=== PATIENT | female | born 1950 | race Caucasian/White ===

== ENCOUNTER 2016-06-10 07:36 | Inpatient (IN) | payer OTHER ==
--- NOTE | 2016-06-10 07:50 | EDPHY ---
H & P Time Seen by Provider: 06/10/16 07:46 HPI/ROS: Chief complaint. Fall HPI. 65-year-old female here by EMS after slip and fall on the ice this morning. She landed hard on her right hip and subsequently was unable to get up or stand or walk by herself. She crawled home and called EMS as she was unable to ambulate. She did not strike her head or lose consciousness. No neck pain chest pain abdominal pain or back pain. No previous injury to the right hip. Increased pain with range of motion. Patient is on Suboxone therapy and EMS gave the patient 2 mg of Versed said in attempt to help her pain. ROS Constitutional. no fever/chills, no weakness Eyes. no problems with vision ENT. no sore throat, no nasal drainage Cardiovascular. no chest pain Respiratory. no shortness of breath, no cough Abdominal. no abdominal pain, no nausea/vomiting, no diarrhea . no problems urinating MS. Right hip pain Skin. no rash Lymph. no swollen glands Neuro. no headache, no dizziness, no difficulty walking or with speech Past Medical/Surgical History: Depression, hypertension, chronic opioid dependence for chronic neck pain and now on Suboxone Social History: , daily smoker, no alcohol Smoking Status: Heavy smoker Physical Exam: General Appearance: Alert pleasant well-developed female moderate distress vital signs are stable Eyes: Pupils equal and round no pallor or injection. ENT, Mouth: Mucous membranes are moist. Respiratory: There are no retractions, lungs are clear to auscultation. Cardiovascular: Regular rate and rhythm. Gastrointestinal: Abdomen is soft and nontender, no masses, bowel sounds normal. Neurological: Awake and alert, sensory and motor exams grossly normal. Skin: Warm and dry, no rashes. Musculoskeletal: Neck is supple nontender. Lumbar spine is not tender to palpation Extremities painful range of motion about the right hip but no obvious deformity or shortening. Diffuse pain to the greater trochanter area and right buttock but no tenderness over the rim of the pelvis or over the pubic ramus Psychiatric: Patient is oriented X 3, there is no agitation. Constitutional: Initial Vital Signs Temperature (C) 36.6 C 06/10/16 07:42 Heart Rate 66 06/10/16 07:42 Respiratory Rate 18 06/10/16 07:42 Blood Pressure 179/94 H 06/10/16 07:42 O2 Sat (%) 95 06/10/16 07:42 O2 Delivery Mode Room Air Allergies/Adverse Reactions: No Known Allergies Allergy (Verified 06/10/16 07:41) Home Medications: Medication Instructions Recorded Aspirin EC [Aspirin EC 81 mg (*)] 81 mg PO HS 01/23/15 Calcium Carb W/Vit D [Calcium Carb 500 mg PO HS 01/23/15 W/Vit D 500/200 (*)] Herbals/Supplements -Info Only 1 ea PO DAILY 01/23/15 Melatonin [Melatonin 3 MG (*)] 3 mg PO HS 01/23/15 Metoprolol Succinate Xr [Toprol Xl 100 mg PO DAILY 01/23/15 100 mg (*)] Sertraline HCl [Zoloft 100mg (*)] 100 mg PO DAILY 01/23/15 Simvastatin [Zocor] 80 mg PO HS 01/23/15 Melatonin [Melatonin 3 MG (*)] 3 mg PO HS #0 tab 01/25/15 Metoprolol Succinate Xr [Toprol Xl 100 mg PO DAILY #0 tab 01/25/15 100 mg (*)] Jackson-3 Ethyl Est-Lovaza [Lovaza 1 4 gm PO DAILY #0 cap 01/25/15 gm (*)] Sertraline HCl [Zoloft 100mg (*)] 100 mg PO DAILY #30 tab 01/25/15 Donepezil HCl [Aricept 5 MG (*)] 5 mg PO HS 06/10/16 Suboxone 8 mg-2 mg Tablet 06/10/16 Medical Decision Making - Diagnostics EKG Interpretation: EKG interpreted by me shows normal sinus rhythm normal interval and axis. QRS is normal there is no significant ST elevation or depression. There is no arrhythmia. The rate is 63 Imaging: X-ray right hip interpreted by me shows an intertrochanteric and proximal femoral fracture just below the greater and lesser trochanter. Images are suboptimal due to patient's discomfort. One-view chest x-ray interpreted by me is normal Procedures: IV normal saline, monitor ED Course/Re-evaluation: Re-evaluation at 8:10 a.m.. The patient, her and I discussed imaging study results, treatment plan including need for admission. They expressed understanding and agreement I have consulted and discussed the case with Dr. Daley, hospitalist, who agrees to the admission I have consulted pharmacy regarding pain management. They recommend normal doses of narcotics with anticipation that she may need more to overcome the antagonist some of the Suboxone I consulted and discussed the case with Dr. Willett who will see the patient in the hospital Dilaudid is given intravenously Differential Diagnosis: I considered fracture, dislocation, contusion - Data Points Laboratory Results: Laboratory Results 06/10/16 07:40 06/10/16 07:40 06/10/16 07:40 WBC 12.41 H 10^3/uL (3.80-9.50) RBC 5.42 H 10^6/uL (4.18-5.33) Hgb 16.3 g/dL (12.6-16.3) Hct 49.2 H % (38.0-47.0) MCV 90.8 fL (81.5-99.8) MCH 30.1 pg (27.9-34.1) MCHC 33.1 g/dL (32.4-36.7) RDW 12.9 % (11.5-15.2) Plt Count 264 10^3/uL (150-400) MPV 10.1 fL (8.7-11.7) Neut % (Auto) 67.1 % (39.3-74.2) Lymph % (Auto) 23.0 % (15.0-45.0) Cataño % (Auto) 6.8 % (4.5-13.0) Eos % (Auto) 1.7 % (0.6-7.6) Baso % (Auto) 0.9 % (0.3-1.7) Nucleat RBC Rel Count 0.0 % (0.0-0.2) Absolute Neuts (auto) 8.34 H 10^3/uL (1.70-6.50) Absolute Lymphs (auto) 2.85 10^3/uL (1.00-3.00) Absolute Monos (auto) 0.84 H 10^3/uL (0.30-0.80) Absolute Eos (auto) 0.21 10^3/uL (0.03-0.40) Absolute Basos (auto) 0.11 H 10^3/uL (0.02-0.10) Absolute Nucleated RBC 0.00 10^3/uL (0-0.01) Immature Gran % 0.5 % (0.0-1.1) Immature Gran # 0.06 10^3/uL (0.00-0.10) PT REJ INR REJ APTT REJ Sodium 145 H mEq/L (134-144) Potassium 4.0 mEq/L (3.5-5.2) Chloride 102 mEq/L (97-110) Carbon Dioxide 29 mEq/l (22-31) Anion Gap 14 mEq/L (8-16) BUN 25 H mg/dL (7-23) Creatinine 0.7 mg/dL (0.6-1.0) Estimated GFR > 60 Glucose 100 mg/dL (70-100) Calcium 9.7 mg/dL (8.5-10.4) Departure - Departure Disposition: [facility] Inpatient Acute Clinical Impression: Closed fracture of right hip Qualifiers: Encounter type: initial encounter Qualifier Code: (S72.001A) Fracture of unspecified part of neck of right femur, initial encounter for closed fracture Condition: Good
[2016-06-10 08:17] LABS: % IMMATURE GRANULYOCYTES 0.5 % (0.0-1.1); ABSOLUTE IMMATURE GRANULOCYTES 0.06 10^3/uL (0.00-0.10); ADD DIFF? NO; ADD MORPH? NO; ADD SCAN? NO; ATYPICAL LYMPHOCYTE FLAG 20 (0-99); FRAGMENT RBC FLAG 0 (0-99); HEMATOCRIT 49.2 % (38.0-47.0); HEMOGLOBIN 16.3 g/dL (12.6-16.3); LEFT SHIFT FLG 0 (0-99); LIPEMIA HEMOLYSIS FLAG 80 (0-99); MEAN CELL HEMOGLOBIN 30.1 pg (27.9-34.1); MEAN CELL HEMOGLOBIN CONCENTR. 33.1 g/dL (32.4-36.7); MEAN CELL VOLUME 90.8 fL (81.5-99.8); MEAN PLATELET VOLUME 10.1 fL (8.7-11.7); PLATELET CLUMPS FLAG 0 (0-99); PLATELET COUNT 264 10^3/uL (150-400); RED BLOOD CELL COUNT 5.42 10^6/uL (4.18-5.33); RED CELL DISTRIBUTION WIDTH 12.9 % (11.5-15.2)
[2016-06-10 08:19] LABS: ANION GAP 14 mEq/L (8-16); CALCIUM 9.7 mg/dL (8.5-10.4); CARBON DIOXIDE 29 mEq/l (22-31); CHLORIDE 102 mEq/L (97-110); CREATININE 0.7 mg/dL (0.6-1.0); GLOMERULAR FILTRATION RATE > 60; GLUCOSE 100 mg/dL (70-100); SODIUM 145 mEq/L (134-144)
--- NOTE | 2016-06-10 08:26 | CPEKG ---
Heart Rate: 63 RR Interval: 952 P-R Interval: 172 QRSD Interval: 80 QT Interval: 432 QTC Interval: 443 P North Pitcher: 63 QRS North Pitcher: 25 T Wave North Pitcher: 58 EKG Severity - NORMAL ECG - EKG Impression: SINUS RHYTHM Electronically Signed By: Sanjay Johnson 10-Jun-2016 09:12:56
--- NOTE | 2016-06-10 08:42 | DX ---
Right Hip, Two Views History: Fall, pain. Comparison: None available. Findings: There is a comminuted coronally oriented intertrochanteric fracture of the right femur. Ali gnment is normal. Mild osteoarthritis is present in the hips bilaterally. Degenerative change is pres ent in the lumbar spine with dextroscoliosis. Impression: Nondisplaced intertrochanteric fracture of the right femur.
--- NOTE | 2016-06-10 08:50 | DX ---
Portable Chest June 10, 2016 0816 hours History: Hip fracture. Chest pain. Comparison: Portable chest January 21, 2015. Findings: There is minimal interstitial prominence without focal consolidation, pneumothorax, or pleu ral effusion. Heart size is normal. Subacute nondisplaced anterior right second through sixth rib fra ctures are noted. Subacute/old left second through seventh rib fractures are present. Impression: 1. Subacute nondisplaced anterior right second through sixth rib fractures. 2. Subacute/old left second through seventh rib fractures. Findings discussed with Sanjay Johnson today at 0844 hours.
[2016-06-10] MEDS ORDERED: HYDROmorphONE/DILAUDID 1 MG/ML SYR IVP ONE ×2 (08:51→09:09)
[2016-06-10] MEDS ORDERED: NS 1,000 ML IV ONE (08:52)
[2016-06-10 09:08] LABS: INR 0.99 (0.83-1.16)
[2016-06-10 09:09] LABS: APTT 26.6 SEC (23.0-38.0)
[2016-06-10] MEDS ORDERED: BUPIVACAINE 0.5% 30 ML SDV ONE (09:45)
[2016-06-10] MEDS ORDERED: ACETAMINOPHEN 325 MG TAB PO PRN (10:41)
[2016-06-10] MEDS ORDERED: LORazepam 0.5 MG TAB PO PRN (10:41)
[2016-06-10] MEDS ORDERED: ONDANSETRON DISINTEGRATING 4 MG TAB PO PRN (10:41)
[2016-06-10] MEDS ORDERED: ONDANSETRON 4 MG/2 ML VIAL IVP PRN (10:41)
[2016-06-10] MEDS ORDERED: PROMETHAZINE HCL 25 MG/ML VIAL IVP PRN (10:41)
[2016-06-10] MEDS ORDERED: HYDROmorphONE/DILAUDID 1 MG/ML SYR IVP PRN ×2 (10:41→11:45)
[2016-06-10] MEDS ORDERED: NS 1,000 ML IV SCH (10:45)
[2016-06-10] MEDS ORDERED: HYDROmorphONE/DILAUDID 1 MG/ML SYR ONE (10:53)
[2016-06-10] MEDS: oxyCODONE IR 5 MG TAB PO PRN ×2 (11:11→23:00)
[2016-06-10] MEDS: DIAZEPAM 10 MG/2 ML SYR IVP PRN ×2 (12:31→23:00)
--- NOTE | 2016-06-10 15:25 | PDGENHP ---
History and Physical - Chief Complaint right hip pain - History of Present Illness 65 yo F with PMH of chronic pain, and multiple prior orthopedic injuries presents s/p trip and fall on ice with resultant right sided intertrochanteric fracture. She notes that she did not hit her head or lose consciousness with the fall. She has had issues with chronic neck pain for which she is currently taking suboxone. She also has had issues with depression which have gotten better recently and she has been working department secretary at [employer]. She denies having any issues with her heart or lungs, though she is a current smoker. She does not have chest pain. Prior to her fall she was active and not having difficulties with getting around. History Information - Allergies/Home Medication List Allergies/Adverse Reactions: No Known Allergies Allergy (Verified 06/10/16 07:41) Home Medications: Aspirin EC [Aspirin EC 81 mg (*)] 81 mg PO HS 01/23/15 [Last Taken 06/09/16] Simvastatin [Zocor] 80 mg PO HS 01/23/15 [Last Taken 06/09/16] BUPRENORPHINE/NALOXONE 8mg/2mg [Suboxone] 1 tab SL TID 06/10/16 [Last Taken 02/16] Cetirizine [ZyrTEC 10 mg (*)] 10 mg PO DAILY 06/10/16 [Last Taken 06/09/16] Cholecalciferol Vit D3 [Vitamin D3 2000 units tab (OTC)] 2,000 units PO DAILY [Last Taken 06/09/16] Donepezil HCl [Aricept 5 MG (*)] 2.5 mg PO Q2D@21 06/10/16 [Last Taken 06/09/16] Donepezil HCl [Aricept 5 MG (*)] 5 mg PO Q2D@21 06/10/16 [Last Taken 06/08/16] Herbals/Supplements -Info Only 1 ea PO DAILY 06/10/16 [Last Taken Unknown] I have personally reviewed and updated: family history, medical history, social history, surgical history - Past Medical History coronary artery disease (non obstructive), hypertension, hyperlipidemia, psychiatric history (depression and prior suicide attempt) Additional medical history: chronic pain with continuous narcotic use and currently on suboxne. hx of osteomyelitis - Surgical History Reports: appendectomy, spinal surgery - Family History Positive for: non-pertinent - Social History Smoking Status: Heavy smoker Alcohol Use: None (previously heavy etoh) Drug Use: None Review of Systems ROS: 10pt was reviewed & negative except for what was stated in HPI & below Physical Exam Temp Pulse Resp BP Pulse Ox 37.1 C 67 16 129/63 H 99 06/10/16 10:40 06/10/16 11:49 06/10/16 11:49 06/10/16 11:49 06/10/16 11:49 O2 (L/minute) 2 Constitutional: no apparent distress, appears nourished Eyes: PERRL Ears, Nose, Mouth, Throat: moist mucous membranes Cardiovascular: regular rate and rhythym, no murmur, rub, or gallop, No edema Respiratory: no respiratory distress, reduced air movement Gastrointestinal: normoactive bowel sounds, soft, non-tender abdomen Skin: warm, normal color Musculoskeletal: full muscle strength, no muscle tenderness, pain with ROM ( right lower extremity) Neurologic: AAOx3 Psychiatric: interacting appropriately, not anxious Lab Data & Imaging Review 06/10/16 07:40 06/10/16 07:40 WBC 12.41 10^3/uL (3.80-9.50) H 06/10/16 07:40 RBC 5.42 10^6/uL (4.18-5.33) H 06/10/16 07:40 Hgb 16.3 g/dL (12.6-16.3) 06/10/16 07:40 Hct 49.2 % (38.0-47.0) H 06/10/16 07:40 MCV 90.8 fL (81.5-99.8) 06/10/16 07:40 MCH 30.1 pg (27.9-34.1) 06/10/16 07:40 MCHC 33.1 g/dL (32.4-36.7) 06/10/16 07:40 RDW 12.9 % (11.5-15.2) 06/10/16 07:40 Plt Count 264 10^3/uL (150-400) 06/10/16 07:40 MPV 10.1 fL (8.7-11.7) 06/10/16 07:40 Neut % (Auto) 67.1 % (39.3-74.2) 06/10/16 07:40 Lymph % (Auto) 23.0 % (15.0-45.0) 06/10/16 07:40 Swisher % (Auto) 6.8 % (4.5-13.0) 06/10/16 07:40 Eos % (Auto) 1.7 % (0.6-7.6) 06/10/16 07:40 Baso % (Auto) 0.9 % (0.3-1.7) 06/10/16 07:40 Nucleat RBC Rel Count 0.0 % (0.0-0.2) 06/10/16 07:40 Absolute Neuts (auto) 8.34 10^3/uL (1.70-6.50) H 06/10/16 07:40 Absolute Lymphs (auto) 2.85 10^3/uL (1.00-3.00) 06/10/16 07:40 Absolute Monos (auto) 0.84 10^3/uL (0.30-0.80) H 06/10/16 07:40 Absolute Eos (auto) 0.21 10^3/uL (0.03-0.40) 06/10/16 07:40 Absolute Basos (auto) 0.11 10^3/uL (0.02-0.10) H 06/10/16 07:40 Absolute Nucleated RBC 0.00 10^3/uL (0-0.01) 06/10/16 07:40 Immature Gran % 0.5 % (0.0-1.1) 06/10/16 07:40 Immature Gran # 0.06 10^3/uL (0.00-0.10) 06/10/16 07:40 PT 13.0 SEC (12.0-15.0) 06/10/16 08:38 INR 0.99 (0.83-1.16) 06/10/16 08:38 APTT 26.6 SEC (23.0-38.0) 06/10/16 08:38 Sodium 145 mEq/L (134-144) H 06/10/16 07:40 Potassium 4.0 mEq/L (3.5-5.2) 06/10/16 07:40 Chloride 102 mEq/L (97-110) 06/10/16 07:40 Carbon Dioxide 29 mEq/l (22-31) 06/10/16 07:40 Anion Gap 14 mEq/L (8-16) 06/10/16 07:40 BUN 25 mg/dL (7-23) H 06/10/16 07:40 Creatinine 0.7 mg/dL (0.6-1.0) 06/10/16 07:40 Estimated GFR > 60 06/10/16 07:40 Glucose 100 mg/dL (70-100) 06/10/16 07:40 Calcium 9.7 mg/dL (8.5-10.4) 06/10/16 07:40 Patient ABO/Rh O POSITIVE 06/10/16 08:38 Antibody Screen NEGATIVE 06/10/16 08:38 Visualized and Interpreted Chest x-ray results: Yes Chest X-Ray results: no infiltrate, other (multiple bilateral subacute, non displaced rib fractures) Visualized and Interpreted imaging results: Yes Interpretation: non displaced intertrochanteric femur fracture on the right Visualized and Interpreted EKG results: Yes EKG Interpretation: Positive for: normal sinsus rhythm Assessment & Plan Assessment: 65 yo F with slip and fall on the ice with resultant non displaced intertrochanteric femur fx # non displaced intertrochanteric right sided femur fracture: with plan for surgical intervention today. Average surgical risk without any evidence of active cardiac or pulmonary issues. Will keep NPO. # acute on chronic pain: acute pain in setting of above, difficult to manage as patient is on suboxone and took that this morning. will hold suboxone, IV dilaudid and valium. May need higher doses of pain meds given suboxone # MDD: with hx of suicide attempt in the past, currently doing well but daughter notes concerns that she has had problems with her mood in the past when not busy. # left shoulder injury: followed by ortho, may make recovery from this injury more challenging as she will need to use a walker # htn/hld: continue op medications # tobacco use: will provide patch/gum, cessation counseling # dispo: IP status, will need > 48 hours stay for eval/mgmt of above Patient new to my care. Old records reviewed and summarized as above. Care plan reviewed with ER. Further hx obtained from patients daughter present at bedside.
[2016-06-10] MEDS ORDERED: DIAZEPAM 10 MG/2 ML SYR ONE ×2 (16:58→19:19)
[2016-06-10] MEDS ORDERED: CEFAZOLIN 2 GM/DEXTROSE/100 ML BAG IV ONE (17:11)
[2016-06-10] MEDS ORDERED: CEFAZOLIN 1 GM/DEXTROSE/50 ML BAG IV ONE (17:12)
--- NOTE | 2016-06-10 17:16 | POSTOPPROG ---
Post Op Note Date of Operation: 06/10/16 Surgeon: Reinaldo Willett Anesthesia: GET(General Endotracheal), Spinal Pre-op Diagnosis: R subtroch femur fx Post-op Diagnosis: Same Procedure: R TFN Inf/Abcess present in the surg proc area at time of surgery?: No EBL: Minimal Complications: None
[2016-06-10] MEDS ORDERED: KETAMINE 100 MG/10 ML SYR IVP ONE (17:18)
[2016-06-10] MEDS ORDERED: fentaNYL 100 MCG/2 ML INJ ONE (17:20)
[2016-06-10] MEDS ORDERED: PROPOFOL 200 MG/20 ML VIAL ONE ×2 (17:24→17:47)
[2016-06-10] MEDS ORDERED: DIAZEPAM 10 MG/2 ML SYR IVP ONE (17:30)
[2016-06-10] MEDS ORDERED: D5W 1/2 NS W/ 20 KCl/L 1,000 ML IV SCH (17:30)
[2016-06-10] MEDS ORDERED: fentaNYL 250 MCG/5 ML INJ ONE (17:48)
[2016-06-10] MEDS ORDERED: HYDROmorphONE/DILAUDID 2 MG/ML SYR ONE ×3 (18:08→20:03)
[2016-06-10] MEDS ORDERED: PHENYLEPHRINE HCL 100 MCG/ML SYR ONE (18:46)
--- NOTE | 2016-06-10 19:05 | DX ---
Intraoperative Fluoroscopy of the Right Femur Clinical History: 65-year-old female status post ORIF for a proximal right femoral fracture. Comparison Study: Right hip from early this morning at 7:54 a.m. Findings: Dr. Reinaldo Willett used 62.5 seconds of fluoroscopy time (exposure dose of 10.04 mGy), and 4 spot matrix images were acquired identifying a longstemmed intramedullary braeden which extends from the greater trochanteric to the distal femur with an interlocking screw, and also a compression screw di rected across the femoral neck and terminating in the femoral head. There is anatomic alignment of th e proximal right femur at the site of the intertrochanteric fracture which extends into the proximal femoral diaphysis. Impression: Intraoperative fluoroscopy provided during orthopedic fixation for a right femoral fractu re.
[2016-06-10] MEDS ORDERED: DEXAMETHASONE 4 MG/ML VIAL ONE (19:28)
[2016-06-10] MEDS ORDERED: LABETALOL HCL 5 MG/ML 20 ML MDV ONE (19:29)
[2016-06-10] MEDS ORDERED: ACETAMINOPHEN 650 MG/20.3 ML UDCUP PO PRN (19:39)
[2016-06-10] MEDS ORDERED: oxyCODONE IR 5 MG TAB ONE (19:48)
--- NOTE | 2016-06-10 19:50 | GCON ---
[f rep st] CONSULTATION DATE OF CONSULTATION: 06/10/2016 REASON FOR CONSULTATION: Right hip pain. HISTORY OF PRESENT ILLNESS: The patient is a 65-year-old community ambulator, who sustained a fall o n the ice, resulting in right hip pain. She denies any previous problems or injuries relative to her hip. EXAMINATION: She holds her leg in a slightly externally rotated position. She is focally tender pamela ng her right anterior thigh. Distal neurovascular exam is intact. IMAGING: AP and lateral radiographs of her hip show evidence of a proximal peritrochanteric femur fr acture with some distal extension into the subtrochanteric region. ASSESSMENT: Right peritrochanteric femur fracture. PLAN: It was recommended that operative treatment consisting of intramedullary nail fixation be purs ued. /[id number]/MODL
[2016-06-10] MEDS ORDERED: ATORVASTATIN CALCIUM 40 MG TAB PO SCH (21:00)
[2016-06-10] MEDS ORDERED: NON-FORMULARY NEW DRUG (Simvastatin [Zocor] 80 MG) PO SCH (21:00)
[2016-06-10] MEDS ORDERED: DONEPEZIL HCL 5 MG TAB PO SCH (21:00)
--- NOTE | 2016-06-10 21:41 | DX ---
AP Portable Pelvis and Right Femur, Two Views June 10, 2016, 2012 hours History: Assess hardware. Findings: Long intramedullary nail of right femur is secured with an interlocking screw in the dista l femoral shaft. This connects with a pin in the right femoral neck and head. Skin clips overlie th e right gluteal region and proximal right thigh. Severe lumbar disk degeneration is poorly imaged on this exam. Impression: Open reduction and internal fixation of comminuted fracture of proximal right femur. E:ROMEO/lia
[2016-06-11 05:10] LABS: % IMMATURE GRANULYOCYTES 0.4 % (0.0-1.1); ABSOLUTE IMMATURE GRANULOCYTES 0.05 10^3/uL (0.00-0.10); ADD DIFF? NO; ADD MORPH? NO; ADD SCAN? NO; ATYPICAL LYMPHOCYTE FLAG 10 (0-99); FRAGMENT RBC FLAG 0 (0-99); HEMATOCRIT 36.2 % (38.0-47.0); HEMOGLOBIN 11.8 g/dL (12.6-16.3); LEFT SHIFT FLG 10 (0-99); LIPEMIA HEMOLYSIS FLAG 80 (0-99); MEAN CELL HEMOGLOBIN 30.3 pg (27.9-34.1); MEAN CELL HEMOGLOBIN CONCENTR. 32.6 g/dL (32.4-36.7); MEAN CELL VOLUME 93.1 fL (81.5-99.8); PLATELET CLUMPS FLAG 10 (0-99); PLATELET COUNT 158 10^3/uL (150-400); RED BLOOD CELL COUNT 3.89 10^6/uL (4.18-5.33); RED CELL DISTRIBUTION WIDTH 13.1 % (11.5-15.2)
[2016-06-11] MEDS: oxyCODONE IR 5 MG TAB PO PRN ×4 (05:13→16:21)
[2016-06-11] MEDS: DIAZEPAM 10 MG/2 ML SYR IVP PRN (05:14)
[2016-06-11 05:29] LABS: ANION GAP 4 mEq/L (8-16); CALCIUM 7.8 mg/dL (8.5-10.4); CARBON DIOXIDE 31 mEq/l (22-31); CHLORIDE 106 mEq/L (97-110); CREATININE 0.6 mg/dL (0.6-1.0); GLOMERULAR FILTRATION RATE > 60; GLUCOSE 159 mg/dL (70-100); POTASSIUM 4.7 mEq/L (3.5-5.2); SODIUM 141 mEq/L (134-144)
[2016-06-11 05:37] LABS: COLOR YELLOW; LEUKOCYTE ESTERASE,URINE TRACE (NEGATIVE); NITRITE,URINE NEGATIVE (NEGATIVE)
[2016-06-11 05:42] LABS: BACTERIA TRACE /hpf (NONE SEEN); MUCUS TRACE /lpf (NONE-1+)
[2016-06-11] MEDS ORDERED: SENNOSIDES/DOCUSATE SODIUM TAB PO ONE (08:44)
[2016-06-11] MEDS ORDERED: LACTULOSE 20 GM/30 ML UDCUP PO PRN (08:51)
[2016-06-11] MEDS ORDERED: MAGNESIUM HYDROXIDE 30 ML UDCUP PO PRN (08:51)
[2016-06-11] MEDS ORDERED: BISACODYL 10 MG SUPP PR PRN (08:51)
[2016-06-11] MEDS ORDERED: POLYETHYLENE GLYCOL 3350 17 GM PKT PO PRN (08:51)
[2016-06-11] MEDS ORDERED: CHOLECALCIFEROL VIT D3 2,000 UNITS TAB/CAP PO SCH (09:00)
[2016-06-11] MEDS ORDERED: ENOXAPARIN 40 MG/0.4 ML SYR SC SCH (09:00)
[2016-06-11] MEDS ORDERED: SERTRALINE HCL 100 MG TAB PO SCH (09:00)
[2016-06-11] MEDS ORDERED: SENNOSIDES/DOCUSATE SODIUM TAB PO SCH (09:00)
[2016-06-11] MEDS ORDERED: CETIRIZINE 10 MG TAB PO SCH (09:00)
[2016-06-11] MEDS ORDERED: METOPROLOL SUCCINATE XR 100 MG TAB PO SCH (09:00)
--- NOTE | 2016-06-11 12:29 | SOAPPROG ---
SOAP Progress Note Assessment/Plan: Assessment: R pertrochanteric femur fx Pain markedly improved compared to yesterday Up with PT Barron diet + U/O Dressing intact, no D/C Limb length/rotation symmetric Distal NVI Plan: OOB/PT OK for D/C from Ortho surg standpoint when cleared by hospitalist F/U Dr. Brennon Alves 06/19/16. Call for appt. 06/11/16 12:26 Objective: Vital Signs Temp Pulse Resp BP Pulse Ox 36.9 C 77 14 101/52 L 95 06/11/16 11:24 06/11/16 11:24 06/11/16 11:24 06/11/16 11:24 06/11/16 11:24 Laboratory Results 06/11/16 04:47 06/11/16 04:47 06/10/16 06/11/16 06/12/16 05:59 05:59 05:59 Intake Total 3305 Output Total 500 Balance 2805 PT 13.0 SEC (12.0-15.0) 06/10/16 08:38 INR 0.99 (0.83-1.16) 06/10/16 08:38 ICD10 Worksheet Patient Problems: Problems Problem Status Diagnosed Closed right hip fracture Acute Suicide attempt by multiple drug overdose Acute
--- NOTE | 2016-06-11 12:31 | PDIAF ---
- Diagnosis Code Status: Full Code - Medication Management Discharge Medications: Medications to Continue on Transfer Aspirin EC [Aspirin EC 81 mg (*)] 81 mg PO HS 01/23/15 [Last Taken 06/09/16] Simvastatin [Zocor] 80 mg PO HS 01/23/15 [Last Taken 06/09/16] Metoprolol Succinate Xr [Toprol Xl 100 mg (*)] 100 mg PO DAILY #0 tab 01/25/15 [ Last Taken 06/09/16] Sertraline HCl [Zoloft 100mg (*)] 100 mg PO DAILY #30 tab 01/25/15 [Last Taken 06/09/16] Cetirizine [ZyrTEC 10 mg (*)] 10 mg PO DAILY 06/10/16 [Last Taken 06/09/16] Cholecalciferol Vit D3 [Vitamin D3 2000 units tab (OTC)] 2,000 units PO DAILY [Last Taken 06/09/16] Donepezil HCl [Aricept 5 MG (*)] 2.5 mg PO Q2D@21 06/10/16 [Last Taken 06/09/16] Donepezil HCl [Aricept 5 MG (*)] 5 mg PO Q2D@21 06/10/16 [Last Taken 06/08/16] Herbals/Supplements -Info Only 1 ea PO DAILY 06/10/16 [Last Taken Unknown] Acetaminophen [Tylenol 650/20.3ML Oral Liq (*)] 650 mg PO Q4 PRN #0 udcup [Last Taken Unknown] Diazepam [Valium 5 MG (*)] 5 mg PO Q6 PRN #45 tab 06/11/16 [Last Taken Unknown] Polyethylene Glycol 3350 [Miralax 17 gm (*)] 17 gm PO DAILY PRN #0 pkt 06/11/16 [Last Taken Unknown] Sennosides/Docusate Sodium [Senokot-S] 1 - 2 tab PO BID #0 tab 06/11/16 [Last Taken Unknown] oxyCODONE IR [Oxycodone Ir (*)] 5 - 10 mg PO Q3HRS PRN #60 tab 06/11/16 [Last Taken Unknown] Discharge Medications: Refer to the Discharge Home Medication list for PRN reason. - Orders Diet Recommendation: no restrictions on diet Wound Care Instructions: Keep dressing intact. Keep wound clean, dry, intact Sutures/Marion Site: R thigh Activity/Weight Bearing Restrictions: WBAT - Follow Up Care Current Providers and Referrals: Barb Neves MD [Primary Care Provider] - Reinaldo Willett MD [Medical Doctor] -
[2016-06-11] MEDS ORDERED: DIAZEPAM 5 MG TAB PO PRN (12:49)
--- NOTE | 2016-06-11 13:37 | GOP ---
[f rep st] OPERATIVE REPORT DATE OF OPERATION: 06/10/2016 SURGEON: Reinaldo Willett MD ANESTHESIA: General. PREOPERATIVE DIAGNOSIS: Right peritrochanteric femur fracture with subtrochanteric extension. POSTOPERATIVE DIAGNOSIS: Right peritrochanteric femur fracture with subtrochanteric extension. PROCEDURE PERFORMED: 1. Closed intramedullary nail fixation, right peritrochanteric/subtrochanteric femur fracture. 2. Intraoperative use of fluoroscopy. FINDINGS: ESTIMATED BLOOD LOSS: Minimal. INDICATIONS: Patient is a 65-year-old community ambulator, who sustained a fall on the ice on the da y of surgery. Clinically and radiographically, she was noted to have a right peritrochanteric femur fracture with extension past the subtrochanteric region. Based on the nature of the injury, it was r ecommended that operative treatment consisting of intramedullary nail stabilization be performed. Seng batres acknowledged she understood the potential risks including, but not limited to, bleeding, infec tion, neurovascular damage, loss of limb function, malunion, nonunion, implant failure, pain or funct ional limitations despite operative treatment, and anesthetic risks. She acknowledged she understood the potential risks, planned procedure, and postoperative plan well, and had all questions answered prior to surgery. She gave consent for the operative procedure. DESCRIPTION OF PROCEDURE: The patient was brought into the operating room after IV antibiotics were administered. Attempted at spinal anesthetic was tried, but proved unsuccessful and therefore, gener al anesthetic was performed. The patient was placed in a supine position on the traction fracture ta ble. The right foot was placed in a well-padded traction boot and the left foot was placed in a well -padded well-leg silva. Fluoroscopic views were obtained to confirm favorable alignment at the [facility] site after gentle manipulation. The right hip was prepped and draped in standard sterile fashio n. A longitudinal incision was made proximal to the greater trochanter. Skin and subcutaneous tissue we re sharply incised. The gluteal fascia was incised in line with the skin incision. Blunt dissection was carried down on the tip of the greater trochanter. A guidepin from the [employer] trochanteric fix ation nail was placed at the optimal starting point on the tip of the trochanter and placed down the intramedullary canal. Guidepin position was confirmed to be optimal fluoroscopically. The 17 mm reamer was then utilized to create a starting hole from the tip of the trochanter. A ball- tipped guide braeden was then placed down the intramedullary canal and position confirmed fluoroscopical ly. Reaming was performed up to 12 mm, where endosteal "chatter" was encountered. An 11 mm diameter x 360 mm long trochanteric fixation nail was then pushed into place. After confirming the proper positioning of the nail, the spiral blade was placed. The 130 degree spi ral blade insertion guide was connected to the aiming guide. A guidepin was placed after making a sm all stab incision on the heel from the lateral aspect of the femur into the central aspect of the fem oral head on both AP and lateral planes. A drill was utilized to create a trough for the spiral blad e. Appropriate length spiral blade was impacted into place gaining purchase within 1 cm of the edge of the femoral head on both AP and lateral planes. The spiral blade was then locked into place. A s destiney distal locking screw was then placed utilizing a freehand technique. Screw position was confir med fluoroscopically in both AP and lateral planes. Attention was directed towards closure. The gluteal fascia was closed with 2-0 Vicryl suture in inte rrupted fashion. Subcutaneous tissues were closed with 3-0 Vicryl suture in interrupted fashion. Sk in was closed with skin sylvia. 0.5% Marcaine without epinephrine was injected in the wound site. The wounds were dressed with sterile Adaptic and 4x4 gauze. Patient tolerated procedure well and was taken to the recovery room extubated in stable condition po stoperatively. All sponge, needle, and instrument counts were reported as being correct. DRAINS: None. COMPLICATIONS: None. PLAN: The patient will be admitted for medical management and gait training. She will be weightbear ing as tolerated on her operative extremity. /[id number]/MODL
--- NOTE | 2016-06-11 13:47 | PDDCSUM ---
Discharge Summary Discharge Summary: Dates of service 06/10-06/11/16 Consultations: ortho Procedures performed: closed IM nail Hospital course by problem: # intertrochanteric fx: s/p IM nailing, patient is wbat and doing well # acute on chronic pain with chronic narcotic use and dependency: has been on suboxone until admission, will continue to hold given acute pain and difficulty managing while on suboxone # acute hypoxic resp failure: desaturating to the 70-80s with exertion, will dc home on supplemental o2. Likely 2/2 both chronic COPD and atelectasis in post op setting # chronic medical issues: MDD, HTN, HLD, CAD # dispo: dc home >35 min of care, more than half in coordination of care
[2016-06-11 15:36] VITALS: BP 106/60; PULSE 90; RESP 18; TEMP 98.6; O2SAT 80
[2016-06-11] MEDS ORDERED: DONEPEZIL HCL 5 MG TAB PO SCH (21:00)
== END 2016-06-11 17:51 | disposition home or self-care (01) | DRG 480 ==
LOC: EDUNIT# → F3N 10:36
PROVIDERS: ADMIT Internal Medicine; ATTEND Internal Medicine
PROC: 0QS606Z Reposition Right Upper Femur with Intramedullary Internal Fixation Device, Open Approach (ICD-10-PCS; principal; 2016-06-10 17:00)
DX: S72.144A Nondisplaced intertrochanteric fracture of right femur, initial encounter for closed fracture (principal); J96.01 Acute respiratory failure with hypoxia; F11.20 Opioid dependence, uncomplicated; F32.9 Major depressive disorder, single episode, unspecified; I10 Essential (primary) hypertension; G89.29 Other chronic pain; M54.2 Cervicalgia; J44.9 Chronic obstructive pulmonary disease, unspecified; I25.10 Atherosclerotic heart disease of native coronary artery without angina pectoris; E78.5 Hyperlipidemia, unspecified; W00.0XXA Fall on same level due to ice and snow, initial encounter; Z72.0 Tobacco use
CPT/HCPCS: 96374; 97116-GP; 97161-GP; 97165-GO; 97530-GP; C1713; C1769; G8978-GP-CJ; G8979-GP-CI; G8980-GP-CI; G8987-GO-CI; G8988-GO-CI; G8989-GO-CI; J0690; J1100; J1170; J1650; J2370; J2704; J3010; J3490

== ENCOUNTER 2016-06-24 13:40 | Emergency (ER) | payer OTHER ==
[2016-06-24 13:50] VITALS: BP 94/63; PULSE 100; RESP 20; TEMP 98.1; O2SAT 95
[2016-06-24] MEDS ORDERED: ONDANSETRON DISINTEGRATING 4 MG TAB PO ONE (13:50)
== END 2016-06-24 16:38 | disposition left against medical advice (07) ==
DX: Z53.21 Procedure and treatment not carried out due to patient leaving prior to being seen by health care provider (principal)

== ENCOUNTER → 2017-06-24 | Outpatient (CLI) | payer OTHER | LOC: BMCIMAGING 08:21 | PROVIDERS: ATTEND Physician Assistant | DX: M51.36 Other intervertebral disc degeneration, lumbar region (principal); M51.37 Other intervertebral disc degeneration, lumbosacral region; M46.96 Unspecified inflammatory spondylopathy, lumbar region; M46.97 Unspecified inflammatory spondylopathy, lumbosacral region ==

== ENCOUNTER 2018-07-27 07:12 | Day surgery (SDC) | payer OTHER ==
[~2018-07-27 07:12] MED LIST: BUPIVACAINE 0.5% 30 ML SDV ONE
[2018-07-27] MEDS ORDERED: LR 1,000 ML IV ONE (07:26)
[2018-07-27] MEDS ORDERED: ceFAZolin 2 GM/DEXTROSE 100 ML IV ONE (08:00)
--- NOTE | 2018-07-27 08:05 | PDHPUP ---
History & Physical Update H&P update statement: This history and physical update is based on an assessment of the patient which was completed after admission or registration (within 24 hours), but prior to the surgery/procedure. H&P update: H&P reviewed & patient examined, no change in patient's condition since H&P completed
--- NOTE | 2018-07-27 08:25 | PDANEPAE ---
ANE History of Present Illness repair of ventral hernia. ANE Past Medical History - Cardiovascular History Hx Hypertension: Yes Hx Arrhythmias: No Hx Chest Pain: No Hx Coronary Artery / Peripheral Vascular Disease: Yes Hx CHF / Valvular Disease: No Hx Palpitations: No Cardiovascular History Comment: HEART MURMUR - Pulmonary History Hx COPD: No Hx Asthma/Reactive Airway Disease: No Hx Recent Upper Respiratory Infection: No Hx Oxygen in Use at Home: No Hx Sleep Apnea: No Sleep Apnea Screening Result - Last Documented: Negative - Neurologic History Hx Cerebrovascular Accident: No Hx Seizures: No Hx Dementia: No Neurologic History Comment: C3 DISC SUBLUXATION W/C4. mild memory impairment - Endocrine History Hx Diabetes: No Hypothyroid: No Hyperthyroid: No Obesity: no - Renal History Hx Renal Disorders: No - Liver History Hx Hepatic Disorders: No - Neurological & Psychiatric Hx Hx Neurological and Psychiatric Disorders: Yes Neurological / Psychiatric History Comment: ANXIETY/DEPRESSION - Cancer History Hx Cancer: No Cancer History Comment: PRECANCEROUS FACE - Congenital Disorder History Hx Congenital Disorders: No - GI History GERD: mild Hx Gastrointestinal Disorders: Yes Gastrointestinal History Comment: DIVERTICULITIS - Other Health History Other Health History: NEG - Chronic Pain History Chronic Pain: Yes (NECK & LOW BACK) - Surgical History Prior Surgeries: LAMINECTOMIES X3. APPENDECTOMY. VENOUS LIGATION/STRIPPING. R HIP PINNING. L ARM FX ANE Review of Systems Review of Systems: - Exercise capacity METS (RN): 4 METS ANE Patient History - Allergies Allergies/Adverse Reactions: No Known Allergies Allergy (Verified 06/24/16 13:47) - Home Medications Home Medications: Aspirin EC [Aspirin EC 81 mg (*)] 81 mg PO HS 01/23/15 [Last Taken 3 Days Ago ~ 07/24/18] Simvastatin [Zocor] 80 mg PO HS 01/23/15 [Last Taken 07/26/18] Cholecalciferol Vit D3 [Vitamin D3 2000 units tab (OTC)] 2,000 units PO DAILY [Last Taken 3 Days Ago ~07/24/18] Donepezil HCl [Aricept 5 MG (*)] 2.5 mg PO Q2D@21 06/10/16 [Last Taken 07/26/18] Herbals/Supplements -Info Only 1 ea PO DAILY 06/10/16 [Last Taken 3 Days Ago ~] Amlodipine Besylate 07/23/18 [Last Taken 07/26/18] Methadone HCl 07/23/18 [Last Taken 07/26/18 16:00] Cyclobenzaprine [Flexeril 10 MG (*)] 07/27/18 [Last Taken 07/26/18] - NPO status NPO Since - Liquids (Date): 07/26/18 NPO Since - Liquids (Time): 20:10 NPO Since - Solids (Date): 07/26/18 NPO Since - Solids (Time): 20:10 - Anes Hx Anes Hx: no prior problems - Smoking Hx Smoking Status: Former smoker Marijuana use: No - Alcohol Use Alcohol Use: None - Family Anes Hx Family Anes Hx: none Family Hx Anesthesia Complications: NEG ANE Labs/Vital Signs - Vital Signs Blood Pressure: 171/93 Heart Rate: 70 Respiratory Rate: 14 O2 Sat (%): 96 Height: 161.29 cm Weight: 43.091 kg ANE Physical Exam - Airway Neck exam: decreased ROM (near normal extension but with pain) Mallampati Score: Class 2 Mouth exam: normal dental/mouth exam - Pulmonary Pulmonary: clear to auscultation - Cardiovascular Cardiovascular: regular rate and rhythym - ASA Status ASA Status: II ANE Anesthesia Plan Anesthesia Plan: GA w LMA
[2018-07-27] MEDS ORDERED: PROPOFOL 200 MG/20 ML VIAL ONE (08:30)
[2018-07-27] MEDS ORDERED: RANITIDINE 50 MG/2 ML VIAL ONE (08:46)
[2018-07-27] MEDS ORDERED: DEXAMETHASONE 4 MG/ML VIAL ONE (08:46)
[2018-07-27] MEDS ORDERED: PHENYLEPHRINE HCL 100 MCG/ML SYR ONE (08:50)
[2018-07-27] MEDS ORDERED: ONDANSETRON 4 MG/2 ML VIAL ONE (09:03)
[2018-07-27] MEDS ORDERED: fentaNYL 100 MCG/2 ML INJ IVP PRN (09:10)
[2018-07-27] MEDS ORDERED: HYDROCODONE/APAP 5/325 TAB PO PRN (09:10)
[2018-07-27] MEDS ORDERED: oxyCODONE IR 5 MG TAB PO PRN (09:10)
[2018-07-27] MEDS ORDERED: NALOXONE HCL 0.4 MG/ML INJ IVP PRN (09:10)
--- NOTE | 2018-07-27 09:32 | POSTOPPROG ---
Post Op Note Date of Operation: 07/27/18 Surgeon: Cristi Quinn Anesthesiologist: Balwinder Duncan Anesthesia: GET(General Endotracheal) Pre-op Diagnosis: incarcerated epigastric ventral hernia Post-op Diagnosis: same Procedure: open incarcerated VH repair, no mesh Findings: incarcerated omentum and preperitoneal fat. no definite bowel involvement. Inf/Abcess present in the surg proc area at time of surgery?: No Depth: Superfical (Skin SQ) EBL: Minimal Complications: none
[2018-07-27 10:26] VITALS: BP 133/67
--- NOTE | 2018-07-27 18:58 | GOP ---
[f rep st] OPERATIVE REPORT DATE OF OPERATION: 07/27/2018 SURGEON: Cristi Quinn MD PREOPERATIVE DIAGNOSIS: Incarcerated ventral hernia. POSTOPERATIVE DIAGNOSIS: Incarcerated ventral hernia. PROCEDURE PERFORMED: Open repair of incarcerated ventral hernia. FINDINGS: The patient was found to have only a 1.5 cm defect, but incarcerated tissue, which was eas heather reduced after anesthesia. She had a large hernia sac. ESTIMATED BLOOD LOSS: Blood loss negligible. DESCRIPTION OF PROCEDURE: The patient was taken to the operating room where she received satisfactor y general endotracheal anesthesia by Dr. Duncan. She was placed in the supine position, prepped and d raped in the usual sterile fashion. A vertical incision was made and carried through the subcutaneou s tissue. Hemostasis was obtained with electrocautery. The hernia sac was encountered. It appeared to contain some clear fluid and some fatty tissue. The sac was freed up from surrounding subcutaneo us tissue and then opened at the fascial level at the base. Contents were easily reduced. The sac w as doubly suture ligated with 3-0 Vicryl and then excess sac was amputated and removed. The defect w as then closed directly with 0 Surgilon [id number] sutures. The wound was further infiltrated w ith 0.5% Marcaine and had been prior to the incision. Subcu was closed with a running 3-0 Vicryl sut ure and the skin with a 4-0 Monocryl subcuticular stitch. She tolerated the procedure well and taken to the recovery room in good condition. There were no complications. /[id number]/MODL
--- NOTE | 2018-07-27 20:25 | POSTANESTH ---
Post Anesthetic Evaluation Cardiovascular Status: Similar to Pre-Op Cond Respiratory Status: Normal, Stable Level of Consciousness/Mental Status: Can Participate in Eval Pain Control: Adequate, Prn Tx Ordered Nausea/Vomiting Control: Adequate, Prn Tx Ordered Complications Possibly Related to Anesthesia: None Noted
== END 2018-07-27 10:33 | disposition home or self-care (01) ==
LOC: FSGY 07:12
PROVIDERS: ATTEND Surgery
PROC: 0WQF0ZZ Repair Abdominal Wall, Open Approach (ICD-10-PCS; principal; 2018-07-27 08:45)
DX: K43.9 Ventral hernia without obstruction or gangrene (principal); E78.00 Pure hypercholesterolemia, unspecified; I25.10 Atherosclerotic heart disease of native coronary artery without angina pectoris
CPT/HCPCS: J0690; J1100; J2370; J2405; J2704; J2780